=== PATIENT | female | born 1985 | race Caucasian/White ===

== ENCOUNTER 2017-04-03 17:02 | Emergency (ER) | payer SELFPAY ==
[~2017-04-03] VITALS: Ht 160 cm; Wt 54.9 kg
[2017-04-03] MEDS ORDERED: ONDANSETRON 4 MG/2 ML VIAL IV ONE (17:45)
[2017-04-03] MEDS ORDERED: IV NS 1000 ML 1,000 ML IV ONE (17:45)
[2017-04-03 17:48] LABS: *BILIRUBIN,URIN NEGATIVE (NEGATIVE); *BLOOD, URINE NEGATIVE (NEGATIVE); *COLOR,URINE YELLOW (YELLOW); *KETONES,URINE NEGATIVE (NEGATIVE); *PROTEIN,URINE NEGATIVE (NEGATIVE); *UROBILINOGEN,URINE 0.2 E.U./dl (NORMAL); LEUKOCYTE ESTERASE ,URINE NEGATIVE (NEGATIVE); NITRITE, URINE NEGATIVE (NEGATIVE); UGLUCOSE NEGATIVE (NEGATIVE)
[2017-04-03 17:52] LABS: *URINE HCG, QUAL NEGATIVE (NEGATIVE)
[2017-04-03 17:53] LABS: BASOPHILS # (AUTO) 0.2 K/uL (0.0-8.0); EOSINOPHILS % (AUTO) 0.4 % (0.0-7.0); HEMATOCRIT 40.1 % (37-47); HEMOGLOBIN 13.6 G/DL (12.0-16.0); LYMPHOCYTES # (AUTO) 1.2 K/UL (0.8-4.8); MEAN CORPUSCULAR HEMOGLOBIN 31.1 UUG (27.0-31.0); MEAN CORPUSCULAR HGB CONC 34 g/dL (32.0-37.0); MEAN CORPUSCULAR VOLUME 91.3 FL (81.0-99.0); MONOCYTES # (AUTO) 0.5 K/UL (0.1-1.30); MONOCYTES % (AUTO) 6.3 % (0.0-11.0); NEUTROPHILS # (AUTO) 5.9 K/UL (1.8-8.9); NEUTROPHILS % (AUTO) 74.3 % (38.5-71.5); PLATELET COUNT (AUTO) 403 K/UL (150-450); RED BLOOD CELL COUNT(AUTO) 4.39 MIL/UL (4.2-5.4); WHITE BLOOD COUNT (AUTO) 7.8 K/UL (4.0-11.2)
[2017-04-03] MEDS ORDERED: ONDANSETRON 4 MG/2 ML VIAL ONE ×2 (17:56→19:41)
[2017-04-03 18:00] LABS: *CLARITY,URINE HAZY (CLEAR); BACTERIA,URINE MODERATE /HPF (NONE SEEN); MUCUS,URINE MODERATE /LPF (0-FEW); SQUAMOUS EPITHELIAL CELL,UR MANY /HPF (NONE SEEN); WBC,URINE 0-3 /HPF (0-3)
[2017-04-03 18:14] LABS: CREATININE 0.8 mg/dL (0.6-1.3); POTASSIUM 3.8 mmol/L (3.5-5.1)
[2017-04-03 18:20] LABS: BILIRUBIN,TOTAL 0.8 mg/dL (0.2-1.0); TOTAL PROTEIN, SERUM 8.3 g/dL (6.4-8.2)
[2017-04-03] MEDS ORDERED: IOHEXOL 300MG/ML 100 ML INFUS..BTL ONE (18:39)
[2017-04-03] MEDS ORDERED: IV NORMAL SALINE 250 ML IV ONE (18:39)
[2017-04-03] MEDS ORDERED: NORMAL SALINE FLUSH 10 ML DISP.SYRIN ONE (18:39)
[2017-04-03] MEDS ORDERED: IV D5LR 1,000 ML IV ONE (19:31)
[2017-04-03] MEDS ORDERED: HYDROMORPHONE 1 MG/1 ML DISP.SYRIN IV ONE ×2 (19:45→20:30)
[2017-04-03] MEDS ORDERED: ONDANSETRON IV *ER 4 MG/2 ML VIAL IV ONE (19:45)
[2017-04-03] MEDS ORDERED: HYDROMORPHONE 1 MG/1 ML DISP.SYRIN ONE ×2 (19:52→20:44)
--- NOTE | 2017-04-03 21:32 | NUR ---
!Patient discharged to home in stable conditon. Written and verbal after care instructions given. Patient verbalizes understanding of instructions.
== END 2017-04-03 21:34 | disposition home or self-care (01) ==
LOC: ER 17:14
DX: R10.31 Right lower quadrant pain (principal); R11.2 Nausea with vomiting, unspecified; Z88.2 Allergy status to sulfonamides
CPT/HCPCS: 36415; 76856; 84703; 85025; A4663; J1170; J2405; J3490; J7030; J7050; Q9967

== ENCOUNTER 2017-04-14 02:54 | Inpatient (IN) | payer MEDICAID ==
[~2017-04-14] VITALS: Ht 160 cm; Wt 59.0 kg
[2017-04-14] MEDS ORDERED: ONDANSETRON 4 MG/2 ML VIAL IV ONE (04:00)
[2017-04-14] MEDS ORDERED: PANTOPRAZOLE SODIUM 40 MG VIAL IV ONE (04:00)
[2017-04-14] MEDS ORDERED: IV NORMAL SALINE 1000 ML BAG IV ONE (04:00)
--- NOTE | 2017-04-14 04:19 | NUR ---
pt to room, changed into gown. Pt was seen here last sat (04/06) for abd pain n/v/d for 1 week. Pt returns c/o symptoms worsened not improved. Sts she unable to hold anything down. Pt seen by . Lab at bedside attempting blood draw
[2017-04-14] MEDS ORDERED: ONDANSETRON 4 MG/2 ML VIAL ONE (04:40)
[2017-04-14] MEDS ORDERED: PANTOPRAZOLE SODIUM 40 MG VIAL ONE (04:41)
[2017-04-14 04:52] LABS: *BILIRUBIN,URIN NEGATIVE (NEGATIVE); *BLOOD, URINE NEGATIVE (NEGATIVE); *CLARITY,URINE CLEAR (CLEAR); *COLOR,URINE YELLOW (YELLOW); *KETONES,URINE NEGATIVE (NEGATIVE); *PROTEIN,URINE NEGATIVE (NEGATIVE); *UROBILINOGEN,URINE 0.2 E.U./dl (NORMAL); LEUKOCYTE ESTERASE ,URINE NEGATIVE (NEGATIVE); NITRITE, URINE NEGATIVE (NEGATIVE); UGLUCOSE NEGATIVE (NEGATIVE)
[2017-04-14] MEDS ORDERED: METOCLOPRAMIDE HCL 10 MG/2 ML VIAL IM ONE (05:00)
[2017-04-14] MEDS ORDERED: KETOROLAC TROMETHAMINE 30 MG INJ IM ONE (05:00)
[2017-04-14] MEDS ORDERED: ONDANSETRON ODT 4 MG TAB.RAPDIS SL ONE (05:00)
[2017-04-14] MEDS ORDERED: diphenhydrAMINE 50 MG/1 ML VIAL IM ONE (05:00)
[2017-04-14] MEDS ORDERED: KETOROLAC TROMETHAMINE 30 MG INJ ONE (05:06)
[2017-04-14] MEDS ORDERED: METOCLOPRAMIDE HCL 10 MG/2 ML VIAL ONE (05:06)
[2017-04-14] MEDS ORDERED: diphenhydrAMINE 50 MG/1 ML VIAL ONE ×2 (05:06→05:15)
[2017-04-14 05:08] LABS: BACTERIA,URINE NONE SEEN /HPF (NONE SEEN); RBC,URINE NONE SEEN /HPF (0-3); WBC,URINE 0-3 /HPF (0-3)
[2017-04-14 05:09] LABS: *URINE HCG, QUAL NEGATIVE (NEGATIVE); SQUAMOUS EPITHELIAL CELL,UR FEW /HPF (NONE SEEN)
[2017-04-14] MEDS ORDERED: LIDOCAINE HCL 1% 20 ML VIAL ONE (05:13)
--- NOTE | 2017-04-14 05:20 | NUR ---
Unable to obtain IV after several attempts. MD notified. MD obtain labs by femoral draw using u/s. Pt medicated for discomfort via IM medications, will monitor for effects of medication. Pt resting in position of comfort for self.
[2017-04-14] MEDS ORDERED: ONDANSETRON ODT 4 MG TAB.RAPDIS ONE (05:28)
[2017-04-14 05:33] LABS: BASOPHILS # (AUTO) 0.1 K/uL (0.0-8.0); BASOPHILS % (AUTO) 0.7 % (0.0-2.0); EOSINOPHILS # (AUTO) 0.1 K/uL (0.0-0.7); EOSINOPHILS % (AUTO) 1.2 % (0.0-7.0); HEMATOCRIT 42.5 % (37-47); HEMOGLOBIN 14.4 G/DL (12.0-16.0); LYMPHOCYTES # (AUTO) 1.4 K/UL (0.8-4.8); LYMPHOCYTES % (AUTO) 16.5 % (20.5-51.5); MEAN CORPUSCULAR HEMOGLOBIN 31.1 UUG (27.0-31.0); MEAN CORPUSCULAR HGB CONC 34 g/dL (32.0-37.0); MEAN CORPUSCULAR VOLUME 91.4 FL (81.0-99.0); MONOCYTES # (AUTO) 0.5 K/UL (0.1-1.30); MONOCYTES % (AUTO) 5.8 % (0.0-11.0); NEUTROPHILS # (AUTO) 6.7 K/UL (1.8-8.9); NEUTROPHILS % (AUTO) 75.8 % (38.5-71.5); PLATELET COUNT (AUTO) 367 K/UL (150-450); RED BLOOD CELL COUNT(AUTO) 4.65 MIL/UL (4.2-5.4); WHITE BLOOD COUNT (AUTO) 8.8 K/UL (4.0-11.2)
[2017-04-14 05:46] LABS: BILIRUBIN,DIRECT 0.3 mg/dL (0.0-0.2); BILIRUBIN,TOTAL 1.6 mg/dL (0.2-1.0); CREATININE 0.9 mg/dL (0.6-1.3); POTASSIUM 3.8 mmol/L (3.5-5.1); TOTAL PROTEIN, SERUM 8.4 g/dL (6.4-8.2)
--- NOTE | 2017-04-14 06:07 | NUR ---
Dr. Chappell speaking with Dr. Chapman ([facility] panel on-call) Addendum: 04/14/17 at 0608 by ERIK Correction: Dr. Chappell spoke with Dr. Ari Harris ([facility] panel hazard mitigation officer) for admission
[2017-04-14] MEDS ORDERED: MAGNESIUM HYDROXIDE 30 ML LIQUID UDC PO PRN (06:15)
[2017-04-14] MEDS ORDERED: Z GUARD REMEDY PASTE 57 GM TUBE TOP PRN (06:15)
[2017-04-14] MEDS ORDERED: ACETAMINOPHEN 325 MG TABLET PO PRN (06:15)
[2017-04-14] MEDS ORDERED: TEMAZEPAM 7.5 MG CAPSULE PO PRN (06:15)
[2017-04-14] MEDS ORDERED: DIPHENOXYLATE HCL/ATROP SULF TABLET PO ONE (06:45)
[2017-04-14] MEDS ORDERED: HYDROMORPHONE HCL 2 MG TABLET PO ONE (06:45)
--- NOTE | 2017-04-14 06:45 | NUR ---
Pt tolerable po challenge of liquids. pt medicated for pain, will monitor for effects of medication. Pt resting in position of comfort for self.
[2017-04-14] MEDS ORDERED: DIPHENOXYLATE HCL/ATROP SULF TABLET ONE ×2 (06:48→06:49)
[2017-04-14] MEDS ORDERED: HYDROMORPHONE HCL 2 MG TABLET ONE (06:48)
--- NOTE | 2017-04-14 07:18 | NUR ---
Report given to KYLIE Pineda. I relinquish care of pt at this time.
--- NOTE | 2017-04-14 07:25 | NUR ---
PICC LINE WAS APPROVED BY NURSING [employer] CONSULTANT. PICC LINE SPECIALIST CARSON WAS CALLED. MAGDY IS 1 HOUR.
[2017-04-14] MEDS: PANTOPRAZOLE SODIUM 40 MG TABLET.DR PO SCH (07:26)
--- NOTE | 2017-04-14 07:49 | NUR ---
REPORT WAS GIVEN TO M/S RN. PT WAS TRANSFERED TO M/S ROOM #220.
--- NOTE | 2017-04-14 08:30 | NUR ---
RECEIVED PATIENT FROM ER, ORIENTED PATIENT TO ROOM, AND PERFORMED SAFETY CHECK, BED IN LOW POSITION, SIDE RAILS UP X2
[2017-04-14 11:59] VITALS: BP 109/65
[2017-04-14] MEDS: METRONIDAZOLE 500 MG/NS 100ML 500 MG in PREMIXED 1 EACH IV SCH ×3 (12:00→21:17)
[2017-04-14] MEDS: LEVOFLOXACIN 500 MG/D5W 500 MG in PREMIXED 1 EACH IV SCH (12:30)
[2017-04-14] MEDS: ONDANSETRON 4 MG/2 ML VIAL IV PRN (14:35)
[2017-04-14 16:00] VITALS: BP 109/65
--- NOTE | 2017-04-14 16:09 | NUR ---
PATIENT TRANSPORTED TO CT
[2017-04-14] MEDS: IV NS 1000 ML 1,000 ML IV PRN ×2 (18:09→23:16)
[2017-04-14 19:00] VITALS: BP 116/67
--- NOTE | 2017-04-14 19:37 | NUR ---
REPORT GIVEN TO FLANGING ROLL OPERATOR NURSE, PATIENT EXPERIENCED SOME NAUSEA AND VOMITING TODAY WHICH WAS RELIEVED WITH MEDICATIONS.
[2017-04-14] MEDS ORDERED: GOLYTELY 4000 ML BOTTLE PO ONE (20:00)
--- NOTE | 2017-04-14 20:10 | NUR ---
PATIENT SEEN BY DR. PROCTOR AND SPOKE TO THE PATIENT REGARDING THE PROCEDURE OF EGD/COLONOSCOPY, AND PATIENT AGREED. CONSENT OBTAINED FOR EGD AND COLONOSPY, PLACE IT IN THE CHART. MD HAS NEW ORDER, NOTED AND CARRIED OUT. PATIENT ON CLEAR LIGUID DIET, AND STARTED GOLYTELY, TEACHES THE PATIENT HOW TO TAKE THE MEDS, AND WHAT IS EXPECTED TO RESULT WHEN TAKEN THE MEDICATIONS. UNDERSTAND THE TEACHING.
[2017-04-14] MEDS: HYDROCODONE/APAP 5-325MG TABLET PO PRN (20:44)
[2017-04-14 20:45] LABS: BASOPHILS % (AUTO) 0.7 % (0.0-2.0); EOSINOPHILS # (AUTO) 0.1 K/uL (0.0-0.7); EOSINOPHILS % (AUTO) 1.9 % (0.0-7.0); HEMATOCRIT 38.7 % (37-47); HEMOGLOBIN 13.6 G/DL (12.0-16.0); LYMPHOCYTES # (AUTO) 1.3 K/UL (0.8-4.8); LYMPHOCYTES % (AUTO) 24.1 % (20.5-51.5); MEAN CORPUSCULAR HEMOGLOBIN 32.2 UUG (27.0-31.0); MEAN CORPUSCULAR HGB CONC 35 g/dL (32.0-37.0); MEAN CORPUSCULAR VOLUME 91.4 FL (81.0-99.0); MONOCYTES # (AUTO) 0.5 K/UL (0.1-1.30); NEUTROPHILS # (AUTO) 3.3 K/UL (1.8-8.9); NEUTROPHILS % (AUTO) 64.3 % (38.5-71.5); PLATELET COUNT (AUTO) 304 K/UL (150-450); RED BLOOD CELL COUNT(AUTO) 4.23 MIL/UL (4.2-5.4); WHITE BLOOD COUNT (AUTO) 5.2 K/UL (4.0-11.2)
[2017-04-15] MEDS: ONDANSETRON 4 MG/2 ML VIAL IV PRN ×2 (01:44→21:54)
[2017-04-15] MEDS: HYDROCODONE/APAP 5-325MG TABLET PO PRN ×2 (01:45→21:54)
[2017-04-15 04:40] VITALS: BP 101/67
[2017-04-15] MEDS: METRONIDAZOLE 500 MG/NS 100ML 500 MG in PREMIXED 1 EACH IV SCH ×3 (06:01→21:06)
[2017-04-15] MEDS: PANTOPRAZOLE SODIUM 40 MG TABLET.DR PO SCH (06:01)
--- NOTE | 2017-04-15 06:45 | NUR ---
PATIENT ALERT ORIENTED NO SOB NO CHEST PAIN, PATIENT REMAIN NPO, ABLE TO FINISH GOLYTES BY 0330, PATIENT HAS MULTIPLE BM, AND BM IS CLEAR NOW. REMIND PATIENT TO NOTHING BY MOUNT, CONT ON PAIN MANAGEMENT. CONT TO MONITOR.
--- NOTE | 2017-04-15 07:10 | NUR ---
RECEIVED REPORT FROM [facility], PATIENT IN BED, LOW POSITION SIDE RAILS UP X2
[2017-04-15 07:17] LABS: BILIRUBIN,TOTAL 2.4 mg/dL (0.2-1.0); CREATININE 0.8 mg/dL (0.6-1.3); MAGNESIUM 1.8 mg/dL (1.8-2.4); POTASSIUM 3.6 mmol/L (3.5-5.1); TOTAL PROTEIN, SERUM 7.4 g/dL (6.4-8.2)
[2017-04-15 07:32] LABS: THYROID STIMULATING HORMONE 0.563 mIU/mL (0.358-3.740)
[2017-04-15] MEDS ORDERED: LIDOCAINE HCL 1% 20 ML VIAL MC ONE (07:50)
[2017-04-15] MEDS ORDERED: IV LACTATED RINGERS SOLUTION 1,000 ML BAG IV ONE (07:50)
[2017-04-15] MEDS ORDERED: PROPOFOL 200 MG/20 ML BOTTLE IV ONE (07:50)
[2017-04-15 09:01] LABS: EOSINOPHILS # (AUTO) 0.1 K/uL (0.0-0.7); EOSINOPHILS % (AUTO) 1.1 % (0.0-7.0); HEMATOCRIT 38.5 % (37-47); HEMOGLOBIN 13.5 G/DL (12.0-16.0); LYMPHOCYTES # (AUTO) 2.1 K/UL (0.8-4.8); LYMPHOCYTES % (AUTO) 28.1 % (20.5-51.5); MEAN CORPUSCULAR HEMOGLOBIN 32.2 UUG (27.0-31.0); MEAN CORPUSCULAR HGB CONC 35 g/dL (32.0-37.0); MEAN CORPUSCULAR VOLUME 91.8 FL (81.0-99.0); MONOCYTES # (AUTO) 0.6 K/UL (0.1-1.30); MONOCYTES % (AUTO) 7.8 % (0.0-11.0); NEUTROPHILS # (AUTO) 4.7 K/UL (1.8-8.9); PLATELET COUNT (AUTO) 282 K/UL (150-450); WHITE BLOOD COUNT (AUTO) 7.5 K/UL (4.0-11.2)
[2017-04-15] MEDS: IV NS 1000 ML 1,000 ML IV PRN ×2 (09:34→23:59)
[2017-04-15] MEDS: KETOROLAC TROMETHAMINE 30 MG INJ IVP PRN (09:38)
[2017-04-15] MEDS: LEVOFLOXACIN 500 MG/D5W 500 MG in PREMIXED 1 EACH IV SCH (11:52)
[2017-04-15 11:53] VITALS: BP 105/73
[2017-04-15 11:55] VITALS: BP 126/51
--- NOTE | 2017-04-15 13:02 | NUR ---
PATIENT BEING TAKEN TO GI LAB FOR EGD AND COLONOSCOPY.
--- NOTE | 2017-04-15 15:00 | NUR ---
PATIENT RETURNED FROM GI LAB, VITALS STABLE
[2017-04-15 16:30] VITALS: BP 100/69
[2017-04-15] MEDS ORDERED: BARIUM SULFATE 340 GM ONE (16:44)
[2017-04-15] MEDS ORDERED: DIATR MEGLU/DIATRIZOATE SODIUM 120 ML BOTTLE ONE (16:44)
--- NOTE | 2017-04-15 19:30 | NUR ---
RECEIVED PT IN BED, AWAKE, ALERT, ABLE TO MAKE NEEDS KNOWN. IN NO ACUTE SIGN OF DISTRESS. IVF INFUSING. SAFETY MAINTAINED. CALL LIGHT WITHIN REACH.
--- NOTE | 2017-04-15 19:30 | NUR ---
PATIENT IN BED SLEEPING, SHE HAS HAD A VERY INVOLVED DAY WITH DIAGNOSTIC TESTS. VITALS ARE STABLE.
[2017-04-15 20:00] VITALS: BP 115/69
[2017-04-16 05:14] VITALS: BP 102/71
[2017-04-16] MEDS: METRONIDAZOLE 500 MG/NS 100ML 500 MG in PREMIXED 1 EACH IV SCH ×2 (05:34→14:14)
[2017-04-16] MEDS: PANTOPRAZOLE SODIUM 40 MG TABLET.DR PO SCH (06:04)
--- NOTE | 2017-04-16 06:45 | NUR ---
C/O ABDOMINAL PAIN LAST NIGHT, WAS GIVEN NORCO PRESCRIBED WITH RELIEF. PT REQUESTED FOR RESTORIL, PT SLEPT MOST SHIFT AFTERWARD. IN NO ACUTE SIGN OF DISTRESS. IV STILL INFUSING. SAFETY MAINTAINED. CALL LIGHT WITHIN REACH.
[2017-04-16 07:55] LABS: BILIRUBIN,TOTAL 1.3 mg/dL (0.2-1.0); MAGNESIUM 1.6 mg/dL (1.8-2.4); PHOSPHOROUS 3.3 mg/dL (2.5-4.9); POTASSIUM 3.3 mmol/L (3.5-5.1); TOTAL PROTEIN, SERUM 6.7 g/dL (6.4-8.2)
[2017-04-16 08:25] LABS: EOSINOPHILS # (AUTO) 0.1 K/uL (0.0-0.7); EOSINOPHILS % (AUTO) 1.3 % (0.0-7.0); HEMATOCRIT 36.3 % (37-47); HEMOGLOBIN 12.4 G/DL (12.0-16.0); LYMPHOCYTES # (AUTO) 1.6 K/UL (0.8-4.8); LYMPHOCYTES % (AUTO) 24.6 % (20.5-51.5); MEAN CORPUSCULAR HEMOGLOBIN 31.6 UUG (27.0-31.0); MEAN CORPUSCULAR HGB CONC 34 g/dL (32.0-37.0); MEAN CORPUSCULAR VOLUME 92.8 FL (81.0-99.0); MONOCYTES # (AUTO) 0.4 K/UL (0.1-1.30); NEUTROPHILS # (AUTO) 4.2 K/UL (1.8-8.9); NEUTROPHILS % (AUTO) 67.1 % (38.5-71.5); PLATELET COUNT (AUTO) 259 K/UL (150-450); RED BLOOD CELL COUNT(AUTO) 3.91 MIL/UL (4.2-5.4); WHITE BLOOD COUNT (AUTO) 6.3 K/UL (4.0-11.2)
[2017-04-16] MEDS: ONDANSETRON 4 MG/2 ML VIAL IV PRN (08:27)
[2017-04-16] MEDS: KETOROLAC TROMETHAMINE 30 MG INJ IVP PRN (08:28)
[2017-04-16 09:20] LABS: *BILIRUBIN,URIN NEGATIVE (NEGATIVE); *BLOOD, URINE NEGATIVE (NEGATIVE); *CLARITY,URINE SLIGHTLY CLOUDY (CLEAR); *COLOR,URINE YELLOW (YELLOW); *KETONES,URINE NEGATIVE (NEGATIVE); *PROTEIN,URINE NEGATIVE (NEGATIVE); *UROBILINOGEN,URINE 0.2 E.U./dl (NORMAL); LEUKOCYTE ESTERASE ,URINE NEGATIVE (NEGATIVE); NITRITE, URINE NEGATIVE (NEGATIVE); UGLUCOSE NEGATIVE (NEGATIVE)
[2017-04-16 10:09] LABS: BACTERIA,URINE FEW /HPF (NONE SEEN); MUCUS,URINE FEW /LPF (0-FEW); RBC,URINE 0-3 /HPF (0-3); SQUAMOUS EPITHELIAL CELL,UR MODERATE /HPF (NONE SEEN); WBC,URINE 0-3 /HPF (0-3)
[2017-04-16] MEDS: IV NS 1000 ML 1,000 ML IV PRN (11:31)
[2017-04-16] MEDS: MAGNESIUM SULFATE/D5W 100 ML IV SCH ×2 (11:31→12:41)
[2017-04-16] MEDS: LEVOFLOXACIN 500 MG/D5W 500 MG in PREMIXED 1 EACH IV SCH (11:32)
[2017-04-16 12:14] VITALS: BP 108/67
--- NOTE | 2017-04-16 12:42 | NUR ---
NO ACUTE CHANGE
--- NOTE | 2017-04-16 12:42 | NUR ---
SEEN BY DR COHN WITH DISCHARGE ORDERS, BEAMING MACHINE OPERATOR MADE AWARE
[2017-04-16] MEDS: POTASSIUM CHLORIDE 50 ML IV SCH ×2 (14:00→15:01)
[2017-04-16 16:12] VITALS: BP 105/69
--- NOTE | 2017-04-16 17:27 | NUR ---
DISCHARGED HOME STABLE WITH FOLLOW-UP INSTRUCTION WITH DR HENRY AND PCP ACCOMPANIED BY [employer]
== END 2017-04-16 18:05 | disposition home or self-care (01) | DRG 249 ==
LOC: ER 02:58 → MED 07:15
PROVIDERS: ADMIT Family Medicine; ATTEND Nurse Practitioner Acute Care
PROC: 0DB68ZX Excision of Stomach, Via Natural or Artificial Opening Endoscopic, Diagnostic (ICD-10-PCS; principal; 2017-04-15 13:40)
PROC: 0DBC8ZX Excision of Ileocecal Valve, Via Natural or Artificial Opening Endoscopic, Diagnostic (ICD-10-PCS; principal; 2017-04-15 13:40)
DX: A08.4 Viral intestinal infection, unspecified (principal); E87.1 Hypo-osmolality and hyponatremia; E86.0 Dehydration; R17 Unspecified jaundice; Z88.0 Allergy status to penicillin; Z88.2 Allergy status to sulfonamides; Z83.3 Family history of diabetes mellitus; Z80.3 Family history of malignant neoplasm of breast; Z80.1 Family history of malignant neoplasm of trachea, bronchus and lung; Z87.891 Personal history of nicotine dependence; H54.8 Legal blindness, as defined in USA; Z87.42 Personal history of other diseases of the female genital tract
CPT/HCPCS: 36415; 43235; 71010; 74250; 76857; 83690; 83735; 84100; 84443; 84703; 85025; 85651; 86625; 87040; 87046; 87086; 89055; A4217; A4663; C9113; J1200; J1885; J1956; J2405; J2765; J3475; J3480; J3490; J7120; Q0162; Q9963; Q9967